=== PATIENT | female | born 1985 | race Asian ===

== ENCOUNTER 2016-12-09 08:34 | Day surgery (SDC) | payer OTHER ==
--- NOTE | 2016-12-08 18:05 | GHP ---
[f rep st] PREOP HISTORY AND PHYSICAL PREOPERATIVE DIAGNOSIS: Missed . HISTORY: Patient is a 31-year-old, 1, para 0, who presented today after an episode of vaginal bleeding. She is 11 weeks 1 day by last menstrual period of 09/20/2017. Patient was supposed to be 11 weeks and 1 day today. She had a small amount of vaginal a light brownish, dark red bleeding last night with wiping after voiding. This morning, it seems to be less. She came in for evaluation, and a transvaginal ultrasound was performed which showed an intrauterine of 6 weeks 1 day with no cardiac activity. There was a 6 week 3 day gestational sac and no yolk sac is noted. A diagnosis of missed was made. Condolences were given. Management options were reviewed extensively with the patient. Patient and her do speak Beninese however , a [employer] [place] manager telecom was used to facilitate discussion. MEDICAL HISTORY: Significant for psoriasis. MEDICATIONS: vitamins. SURGICAL HISTORY: None. ALLERGIES: No known drug allergies. SOCIAL HISTORY: Patient is . She denies tobacco, alcohol, or drug use. FAMILY MEDICAL HISTORY: Noncontributory. 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 Periods every 31 days, lasting 1 week. She is a 1, para 0. Current has is a diagnosis of missed . Patient has never had a pelvic exam, so she has never had an abnormal Pap. PHYSICAL EXAM: VITAL SIGNS: Stable. GENERAL APPEARANCE: She is alert and oriented x3. HEART: Regular, regular. LUNGS: Clear to auscultation bilaterally. ABDOMEN: Soft, nondistended, nontender. EXTREMITIES: No calf tenderness or edema. PELVIC: A mobile, midposition uterus with the cervix posterior to the pubic symphysis. She has a small amount of dark red blood within the vagina. LABS: Patient's blood type is pending. ASSESSMENT AND PLAN: A 31-year-old 1, para 0, with a diagnosis of missed . She is supposed to be 11 weeks 1 day, but is measuring 6 weeks 1 day. Management options were reviewed extensively with the patient via an manager telecom. She will undergo a suction dilation and curettage. Risks and benefits of the procedure were reviewed extensively with the patient, and patient was properly consented. /[id number]/MODL MTDD
[2016-12-09] MEDS ORDERED: DOXYCYCLINE HYCLATE 100 MG CAP/TAB PO ONE ×2 (10:00→11:30)
[2016-12-09] MEDS ORDERED: LR 1,000 ML IV ONE (10:00)
[2016-12-09] MEDS ORDERED: MIDAZOLAM 2 MG/2 ML VIAL ONE (10:13)
[2016-12-09] MEDS ORDERED: PROPOFOL 200 MG/20 ML VIAL ONE ×2 (10:17→10:35)
[2016-12-09] MEDS ORDERED: LIDOCAINE 2% 5 ML SDV ONE (10:18)
[2016-12-09] MEDS ORDERED: fentaNYL 100 MCG/2 ML INJ ONE (10:18)
[2016-12-09] MEDS ORDERED: MISOPROSTOL 200 MCG TAB ONE (10:22)
--- NOTE | 2016-12-09 11:16 | POSTOPPROG ---
Post Op Note Date of Operation: 12/09/16 Surgeon: Erna Wetzel Head Charrer: None Anesthesiologist: Giovani Chase Anesthesia: LMA Pre-op Diagnosis: Missed Ab at 6 weeks Post-op Diagnosis: Missed Ab at 6 weeks Indication: 31 y/o with VB; TVUS done showing a gs at 6 3/7 wks, no yolk sac Procedure: Suction D&C Findings: RV uterus sounded to 9 cm; dilated cervix 2-3 cm; mod POCs noted; Inf/Abcess present in the surg proc area at time of surgery?: No EBL: 50-100 Complications: None Specimen(s): POCs
[2016-12-09] MEDS ORDERED: MISOPROSTOL 200 MCG TAB PR SCH (11:30)
[2016-12-09] MEDS ORDERED: DEXAMETHASONE 4 MG/ML VIAL ONE ×2 (11:41)
[2016-12-09] MEDS ORDERED: KETOROLAC 30 MG/1 ML SDV ONE (11:41)
[2016-12-09] MEDS ORDERED: ONDANSETRON 4 MG/2 ML VIAL ONE (11:41)
--- NOTE | 2016-12-09 15:43 | GOP ---
[f rep st] OPERATIVE REPORT DATE OF OPERATION: 12/09/2016 SURGEON: Erna Wetzel DO CRUISE DIRECTOR: None. ANESTHESIA: LMA ANESTHESIOLOGIST: Dr. Johnathan Chase. PREOPERATIVE DIAGNOSIS: Missed at 6 weeks. POSTOPERATIVE DIAGNOSIS: Missed at 6 weeks. PROCEDURE PERFORMED: Suction dilatation and curettage. FINDINGS: Retroverted uterus, sounded to 9 cm. Dilated cervix, 2 to 3 cm, noted with active bleeding. A curved #8 suction curette was used. Moderate amount of products of conception noted. There was noted to be some oozing from the cervix. 800 mcg of Cytotec was placed per rectum, and hemostasis was noted. All specimens sent to Pathology. SPECIMENS: Products of conception. ESTIMATED BLOOD LOSS: 50 cc. COMPLICATIONS: None. IV FLUIDS: 2500 cc LR. URINE OUTPUT: The patient emptied her bladder prior to the procedure. INDICATIONS: Patient is a 31-year-old 1, para 0, at 11 1/7 wks by LMP 09/20/16 who presented to my office yesterday with vaginal bleeding. She had an ultrasound done showing a gestational sac only measuring 6 and 3/7 weeks. No yolk sac seen, consistent with missed . Condolences were given. The patient was given treatment options, including observation, medical management versus surgical management. The patient opted for surgical management at this time. All consents were obtained at bedside. DESCRIPTION OF PROCEDURE: The patient was taken to the operating room, where anesthesia was obtained without difficulty. The patient was placed in dorsal lithotomy position and prepped and draped in normal sterile fashion A bivalved speculum was placed in the patient's vagina. The anterior lip of the cervix was grasped with a single-tooth tenaculum. There was noted to be active bleeding. The cervix was dilated to about 2-3 cm. Uterus was then gently sounded to 9 cm, and dilated with Humphreys dilators up to 8.5. A curved 8 mm suction curette was used, and gently placed up to the uterine fundus. The suction curette was then used multiple times to remove all products of . We then turned our attention to sharp curette. This was done in all 4 quadrants of the uterus until a gritty texture was noted. We then advanced the suction curette one last time to remove any remaining products of conception. There was noted to be some bleeding from the cervix at this time. So, 800 mcg of Cytotec was placed per rectum. Hemostasis was achieved. All instruments were removed from the vagina. There was noted to be some oozing from the tenaculum site, so silver nitrate x2 was used. Hemostasis was achieved. Patient tolerated the procedure well. No complications. The patient is A positive. No RhoGAM is indicated. The patient was taken out of dorsal lithotomy position, awakened, then taken to PACU in stable condition. /[id number]/MODL MTDD
== END 2016-12-09 13:00 | disposition home or self-care (01) ==
LOC: FOBOP 08:34
PROVIDERS: ATTEND Obstetrics & Gynecology
PROC: 10D17ZZ Extraction of Products of Conception, Retained, Via Natural or Artificial Opening (ICD-10-PCS; principal; 2016-12-09)
DX: O02.1 Missed abortion (principal); L40.9 Psoriasis, unspecified
CPT/HCPCS: J1100; J1885; J2250; J2405; J2704; J3010